=== PATIENT | female | born 1990 | race Asian ===

== ENCOUNTER → 2024-06-04 | Outpatient (CLI) | payer MEDICAID ==
[2024-06-04 11:58] LABS: Basophils # (auto) 0.1 10 ^3/uL (0-0.2); Basophils % (auto) 0.8 % (0.0-2.0); Eosinophils # (auto) 0 10 ^3/uL (0-0.8); Eosinophils % (auto) 0.4 % (0.0-7.0); Hemoglobin 13.6 g/dL (12.2-16.2); Lymphocytes # (auto) 1.6 10 ^3/uL (0.4-5.4); Lymphocytes % (auto) 17.6 % (10.0-50.0); Mean Corpuscular Hemoglobin 30.5 pg (28.0-32.0); Mean Corpuscular Volume 89.7 fL (80.0-100.0); Monocytes # (auto) 0.5 10 ^3/uL (0-1.3); Monocytes % (auto) 5.2 % (0.0-12.0); Neutrophils # (auto) 6.8 10 ^3/uL (1.6-8.6); Nucleated Red Blood Cells % 0.1 %; Red Blood Cells 4.47 10^6/uL (4.0-5.20); Red Cell Distribution Width 13.3 % (11.8-14.3)
[2024-06-04 12:49] LABS: Amphetamine Screen, Urine Neg (NEGATIVE)
[2024-06-04 12:53] LABS: Barbiturate Scree,Urine Neg (NEGATIVE); Benzodiazephine Screen, Urine Neg (NEGATIVE); Cannabinoid Screen, Urine Neg (NEGATIVE); Cocaine Screen, Urine Neg (NEGATIVE); Opiate Scree,Urine Neg (NEGATIVE); Phencyclidine Screen, Urine Neg (NEGATIVE); Thyroid Stimulating Hormone 1.49 uIU/mL (0.55-4.78)
[2024-06-04 12:55] LABS: Alanine Aminotransferase 36 U/L (7-40); Albumin 4.5 g/dL (3.2-4.8); Alkaline Phosphatase 38 U/L (46-116); Anion Gap 7 (5-15); Aspartate Aminotransferase 17 U/L (13-40); BUN/Creatinine Ratio 9.4 (10.0-20.0); Blood Urea Nitrogen 5 mg/dL (9-23); Calcium 9.9 mg/dL (8.7-10.4); Carbon Dioxide 24 mmol/L (20-30); Chloride 106 mmol/L (98-107); Cholesterol 162 mg/dL (< 200); Glucose 77 mg/dL (74-106); HDL Cholesterol 50 mg/dL (40-59); LDL Cholesterol 100 mg/dL (< 100); Potassium 3.9 mmol/L (3.5-5.1); Sodium 137 mmol/L (136-145); Total Protein 7.1 g/dL (5.7-8.2); Triglycerides 48 mg/dL (< 150)
[2024-06-04 13:01] LABS: Beta HCG, Quantitative 122485.5 mIU/mL (1.5-4.2)
== END | disposition home or self-care (01) ==
LOC: LAB 10:59
PROVIDERS: ATTEND Obstetrics & Gynecology
DX: Z34.00 Encounter for supervision of normal first pregnancy, unspecified trimester (principal); Z31.430 Encounter of female for testing for genetic disease carrier status for procreative management; N39.0 Urinary tract infection, site not specified; Z3A.00 Weeks of gestation of pregnancy not specified
CPT/HCPCS: 36415; 80053; 80061; 80307; 83036; 84439; 84443; 84702; 85025; 86592; 86703; 86762; 86850; 86900; 86901; 87086; 87340

== ENCOUNTER → 2024-09-02 | Outpatient (CLI) | payer MEDICAID ==
[2024-09-02 15:34] LABS: Chloride 105 mmol/L (98-107); Potassium 3.8 mmol/L (3.5-5.1)
[2024-09-02 15:35] LABS: Carbon Dioxide 26 mmol/L (20-31)
[2024-09-02 15:36] LABS: Calcium 9.9 mg/dL (8.7-10.4)
[2024-09-02 15:40] LABS: BUN/Creatinine Ratio 17.4 (10.0-20.0); Blood Urea Nitrogen 8 mg/dL (9-23); Glucose 76 mg/dL (74-106)
[2024-09-02 15:43] LABS: Anion Gap 5 (5-15); Sodium 136 mmol/L (136-145)
[2024-09-02 16:10] LABS: Basophils # (auto) 0 10 ^3/uL (0-0.2); Basophils % (auto) 0.4 % (0.0-2.0); Eosinophils # (auto) 0.1 10 ^3/uL (0-0.8); Eosinophils % (auto) 1.1 % (0.0-7.0); Hematocrit 36.3 % (36.0-46.0); Hemoglobin 12.2 g/dL (12.2-16.2); Lymphocytes # (auto) 1.6 10 ^3/uL (0.4-5.4); Lymphocytes % (auto) 15.7 % (10.0-50.0); Mean Corpuscular Hemoglobin 31.4 pg (28.0-32.0); Mean Corpuscular Hgb Conc. 33.7 g/dL (32.0-36.0); Monocytes # (auto) 0.5 10 ^3/uL (0-1.3); Monocytes % (auto) 4.8 % (0.0-12.0); Neutrophils # (auto) 7.9 10 ^3/uL (1.6-8.6); Platelet Count (auto) 224 10^3/uL (140-450); Red Cell Distribution Width 14.1 % (11.8-14.3); White Blood Cell 10.1 10^3/uL (4.4-10.8)
== END | disposition home or self-care (01) ==
LOC: LAB 14:52
PROVIDERS: ATTEND Obstetrics & Gynecology
DX: Z34.00 Encounter for supervision of normal first pregnancy, unspecified trimester (principal)
CPT/HCPCS: 36415; 80048; 85025

== ENCOUNTER → 2024-10-15 | Outpatient (CLI) | payer MEDICAID ==
[2024-10-15 09:29] LABS: Basophils # (auto) 0.1 10 ^3/uL (0-0.2); Basophils % (auto) 0.7 % (0.0-2.0); Eosinophils # (auto) 0.1 10 ^3/uL (0-0.8); Eosinophils % (auto) 0.5 % (0.0-7.0); Hematocrit 36.5 % (36.0-46.0); Hemoglobin 12.2 g/dL (12.2-16.2); Lymphocytes # (auto) 1.2 10 ^3/uL (0.4-5.4); Lymphocytes % (auto) 10.9 % (10.0-50.0); Mean Corpuscular Hemoglobin 31.4 pg (28.0-32.0); Mean Corpuscular Hgb Conc. 33.4 g/dL (32.0-36.0); Monocytes # (auto) 0.5 10 ^3/uL (0-1.3); Monocytes % (auto) 4.6 % (0.0-12.0); Neutrophils # (auto) 9.5 10 ^3/uL (1.6-8.6); Neutrophils % (auto) 83.3 % (37.0-80.0); Platelet Count (auto) 225 10^3/uL (140-450); Red Blood Cells 3.88 10^6/uL (4.0-5.20); Red Cell Distribution Width 13.7 % (11.8-14.3); White Blood Cell 11.4 10^3/uL (4.4-10.8)
[2024-10-15 10:21] LABS: Alanine Aminotransferase 15 U/L (7-40); Albumin 4.1 g/dL (3.2-4.8); Alkaline Phosphatase 60 U/L (46-116); Anion Gap 8 (5-15); Aspartate Aminotransferase 15 U/L (13-40); BUN/Creatinine Ratio 18.5 (10.0-20.0); Bilirubin, Total 0.5 mg/dL (0.2-1.0); Blood Urea Nitrogen 10 mg/dL (9-23); Calcium 9.7 mg/dL (8.7-10.4); Carbon Dioxide 24 mmol/L (20-31); Chloride 106 mmol/L (98-107); Glucose 87 mg/dL (74-106); Potassium 3.8 mmol/L (3.5-5.1); Sodium 138 mmol/L (136-145); Total Protein 6.9 g/dL (5.7-8.2)
[2024-10-16 07:06] LABS: RPR Non Reactive (Non Reactive)
[2024-10-16 23:06] LABS: Chlamydia Trachomatis, NAA Negative (Negative); Neisseria gonorrhoeae, NAA Negative (Negative)
== END | disposition home or self-care (01) ==
LOC: LAB 08:53
DX: Z34.00 Encounter for supervision of normal first pregnancy, unspecified trimester (principal); Z3A.00 Weeks of gestation of pregnancy not specified
CPT/HCPCS: 36415; 80053; 82951; 83036; 85025; 86592; 86850; 86900; 86901

== ENCOUNTER → 2024-12-25 | Outpatient (CLI) | payer MEDICAID ==
[2024-12-25 12:10] LABS: Basophils # (auto) 0 10 ^3/uL (0-0.2); Basophils % (auto) 0.6 % (0.0-2.0); Eosinophils # (auto) 0 10 ^3/uL (0-0.8); Eosinophils % (auto) 0.5 % (0.0-7.0); Hematocrit 39.1 % (36.0-46.0); Hemoglobin 13.6 g/dL (12.2-16.2); Lymphocytes # (auto) 1.1 10 ^3/uL (0.4-5.4); Lymphocytes % (auto) 14.5 % (10.0-50.0); Mean Corpuscular Hemoglobin 32.4 pg (28.0-32.0); Mean Corpuscular Hgb Conc. 34.8 g/dL (32.0-36.0); Mean Corpuscular Volume 93.2 fL (80.0-100.0); Monocytes # (auto) 0.4 10 ^3/uL (0-1.3); Monocytes % (auto) 5.6 % (0.0-12.0); Neutrophils # (auto) 5.8 10 ^3/uL (1.6-8.6); Neutrophils % (auto) 78.8 % (37.0-80.0); Platelet Count (auto) 190 10^3/uL (140-450); Red Cell Distribution Width 13.6 % (11.8-14.3); White Blood Cell 7.4 10^3/uL (4.4-10.8)
[2024-12-26 08:07] LABS: RPR Non Reactive (Non Reactive)
[2024-12-26 22:06] LABS: Chlamydia Trachomatis, NAA Negative (Negative); Neisseria gonorrhoeae, NAA Negative (Negative)
== END | disposition home or self-care (01) ==
LOC: LAB 11:13
PROVIDERS: ATTEND Obstetrics & Gynecology
DX: Z34.00 Encounter for supervision of normal first pregnancy, unspecified trimester (principal); Z72.51 High risk heterosexual behavior; Z3A.00 Weeks of gestation of pregnancy not specified
CPT/HCPCS: 36415; 85025; 86592

== ENCOUNTER 2025-01-02 04:11 | Inpatient (IN) | payer MEDICAID ==
[~2025-01-02] VITALS: Ht 154.9 cm; Wt 51.7 kg
[2025-01-02] MEDS ORDERED: NALBUPHINE HCL 10 MG/1ml INJECTION IV PRN (04:45)
[2025-01-02] MEDS ORDERED: LIDOCAINE 2%HCL (LOCAL ANESTH.) INJ 20ML MDV IJ PRN (04:45)
--- NOTE | 2025-01-02 05:17 | DVHHP ---
CHIEF COMPLAINT: Rupture of membrane. HISTORY OF PRESENT ILLNESS: The patient is a 34-year-old 1, para 0 with EDC 01/15, estimated gestational age of 38 weeks, admitted for spontaneous rupture of membrane, clear fluid with positive pooling. The patient was noted to be 1 cm. PAST MEDICAL HISTORY: None. PAST SURGICAL HISTORY: None. SOCIAL HISTORY: None. FAMILY HISTORY: None. OBSTETRIC AND GYNECOLOGIC HISTORY: Primigravid. Blood type A positive, GBS negative, rubella immune. REVIEW OF SYSTEMS: Consistent with HPI. PHYSICAL EXAMINATION: VITAL SIGNS: Stable, afebrile. HEENT: Within normal limits. CARDIOVASCULAR: Regular rate and rhythm. LUNGS: Clear to auscultation. BREASTS: Symmetrical. No masses. ABDOMEN: Gravid. Positive heart. PELVIC: 1 cm, 50%, -3. EXTREMITIES: No clubbing, cyanosis or edema. IMPRESSION: Intrauterine at 38+ weeks with spontaneous rupture of membrane. PLAN: Expectant vaginal delivery. Informed consent obtained. Risks, complication of augmentation discussed with the patient. The patient fully understands. Dr. Painting will manage her in the morning. He will be the non profit financial controller physician. DO VICENTE Lopez TID: [id number] RECEIPT: [id number]
[2025-01-02 05:28] LABS: Basophils # (auto) 0 10 ^3/uL (0-0.2); Basophils % (auto) 0.5 % (0.0-2.0); Eosinophils # (auto) 0.1 10 ^3/uL (0-0.8); Eosinophils % (auto) 0.6 % (0.0-7.0); Hematocrit 38.5 % (36.0-46.0); Hemoglobin 13.4 g/dL (12.2-16.2); Lymphocytes # (auto) 1.5 10 ^3/uL (0.4-5.4); Lymphocytes % (auto) 17.9 % (10.0-50.0); Mean Corpuscular Hgb Conc. 34.7 g/dL (32.0-36.0); Mean Corpuscular Volume 92.3 fL (80.0-100.0); Monocytes # (auto) 0.5 10 ^3/uL (0-1.3); Monocytes % (auto) 5.6 % (0.0-12.0); Neutrophils # (auto) 6.1 10 ^3/uL (1.6-8.6); Neutrophils % (auto) 75.4 % (37.0-80.0); Platelet Count (auto) 198 10^3/uL (140-450); Red Blood Cells 4.17 10^6/uL (4.0-5.20); Red Cell Distribution Width 13.4 % (11.8-14.3); White Blood Cell 8.1 10^3/uL (4.4-10.8)
[2025-01-02 05:30] LABS: Urine Bacteria FEW /hpf (None Seen); Urine Blood 3+ /uL (Negative); Urine Clarity Turbid (Clear); Urine Color Colorless (Yellow); Urine Protein, UAD 1+ (Negative); Urine Specific Gravity 1.006 (1.001-1.035); Urine Squamous Epithelial Cell FEW /hpf (<5); Urine Urobilinogen Normal (Negative); Urine WBC 39 /HPF (0-5); Urine pH 6.5 (5.0-9.0)
[2025-01-02 05:41] LABS: INR 0.88 (0.9-1.15); Partial Thromboplastin Time 25.1 SEC (24.5-34.5); Prothrombin Time 9.4 sec (9.3-11.8)
[2025-01-02 05:45] LABS: Amphetamine Screen, Urine Neg (NEGATIVE); Barbiturate Scree,Urine Neg (NEGATIVE); Benzodiazephine Screen, Urine Neg (NEGATIVE); Cannabinoid Screen, Urine Neg (NEGATIVE); Cocaine Screen, Urine Neg (NEGATIVE); Opiate Scree,Urine Neg (NEGATIVE); Phencyclidine Screen, Urine Neg (NEGATIVE)
[2025-01-02] MEDS: LACTATED RINGER'S 1,000 ML IV SCH (05:45)
[2025-01-02] MEDS: miSOPROStol 50 MCG per PRE-CUT 1/2 TAB PO PRN (05:45)
[2025-01-02 05:46] LABS: Albumin 4.2 g/dL (3.2-4.8); Anion Gap 11 (5-15); Aspartate Aminotransferase 16 U/L (13-40); BUN/Creatinine Ratio 13.8 (10.0-20.0); Bilirubin, Total 0.7 mg/dL (0.2-1.0); Calcium 10.2 mg/dL (8.7-10.4); Carbon Dioxide 20 mmol/L (20-31); Glucose 86 mg/dL (74-106); Sodium 139 mmol/L (136-145); Total Protein 7.1 g/dL (5.7-8.2)
[2025-01-02 05:56] LABS: Alanine Aminotransferase < 9 U/L (7-40); Alkaline Phosphatase 147 U/L (46-116); Blood Urea Nitrogen 9 mg/dL (9-23); Chloride 108 mmol/L (98-107); Potassium 3.5 mmol/L (3.5-5.1)
[2025-01-02] MEDS: LIDOCAINE HCL 2 %PF INJ 10ML AMP IJ ONE (11:36)
[2025-01-02] MEDS: ePHEDrine SULFATE 50 MG/ML AMP ONE (11:37)
[2025-01-02] MEDS: ROPIVACAINE HCL 200 ML ONE (12:28)
[2025-01-02] MEDS: LACT. RINGERS/OXYTOCIN 20UNITS 1,000 ML IV ONE (16:53)
[2025-01-02] MEDS ORDERED: TERBUTALINE SULFATE 1 MG/ML 1ML VIAL SC PRN (18:30)
[2025-01-02] MEDS: LACT. RINGERS/OXYTOCIN 20UNITS 1,000 ML IV SCH (18:38)
[2025-01-02] MEDS: PHISODERM TOP SOLN 240ML BTL TOP PRN (18:40)
[2025-01-02] MEDS: WITCH HAZEL-GLYCERIN PAD TOP PRN (18:40)
[2025-01-02] MEDS: DERMOPLAST 60ML BOTTLE TOP PRN (18:40)
[2025-01-02] MEDS ORDERED: METHYLERGONOVINE MALEATE 0.2 MG/ML AMP IM PRN (18:45)
[2025-01-02] MEDS ORDERED: CARBOPROST TROMETHAMINE 250 MCG/1ML VIAL IM PRN (18:45)
[2025-01-02] MEDS ORDERED: ONDANSETRON ODT 4 MG TAB PO PRN (20:45)
[2025-01-02] MEDS ORDERED: IBUPROFEN 600 MG TAB PO PRN ×2 (20:45→21:00)
--- NOTE | 2025-01-02 21:31 | LDN2 ---
Labor and Delivery Note Date 01/02/25 Age 34 1 Para 0 AB 0 EDC term EGA term Diagnosis labor Vaginal Delivery: VTX Vacuum Assisted: Yes (Vacuum placed 2nd to maternal exaustion, oblique, 2+ station for 2 hrs ; Trial of gentle Vacuum placed at 2+ station oblique position, gently in coordination with 4 contractions the vertex rotated with finger tip pressure and essentially delivered spontaneously.) Sex: Male Weight 6 lbs, 1 oz Apgars 8/9 Nuchal Cord Transected: Yes (loose x1) Amniotic Fluid: Clear Anesthesia Epidural MASSAGE THERAPY INSTRUCTOR [place]ugwen Episiotomy: No Extension: Yes (2nd midline posterior) Repaired with 2-0 chromic EBL 400cc mild post hemorrhage responded to Pit and massage Labs Laboratory Tests 06/04/24 11:31: Hepatitis B Surface Antigen Negative, HIV (1&2) Antibody Negative, Rubella Antibody Positive Blood Bank 01/02/25 04:52: Blood Type A POSITIVE Complications none Conditions stable guarded Consulting Project Director none present MAGY RIVERA DO Jan 02, 2025 21:31
[2025-01-02] MEDS ORDERED: DIPHENOXYLATE W/ATROPINE 2.5 MG TAB PO SCH (22:00)
[2025-01-02] MEDS: DOCUSATE SOD 100 MG CAP PO SCH (22:00)
[2025-01-02] MEDS: ACETAMINOPHEN 325 MG TAB PO PRN (22:09)
[2025-01-02 22:30] VITALS: BP 98/57; PULSE 68; RESP 16; TEMP 98.7; O2SAT 98
[2025-01-02] MEDS: LACT. RINGERS/OXYTOCIN 20UNITS 500 ML IV ONE ×2 (22:40→22:41)
[2025-01-03] VITALS (8 sets, daily range): BP systolic 84–103; BP diastolic 42–64; PULSE 87–91; RESP 14–18; TEMP 97.7–98.9; O2SAT 96–99
[2025-01-03 05:40] LABS: Basophils # (auto) 0.1 10 ^3/uL (0-0.2); Basophils % (auto) 0.3 % (0.0-2.0); Eosinophils # (auto) 0 10 ^3/uL (0-0.8); Eosinophils % (auto) 0.1 % (0.0-7.0); Hematocrit 23.3 % (36.0-46.0); Hemoglobin 7.8 g/dL (12.2-16.2); Lymphocytes % (auto) 5.1 % (10.0-50.0); Mean Corpuscular Hemoglobin 31.7 pg (28.0-32.0); Mean Corpuscular Hgb Conc. 33.7 g/dL (32.0-36.0); Mean Corpuscular Volume 94.2 fL (80.0-100.0); Monocytes # (auto) 0.8 10 ^3/uL (0-1.3); Monocytes % (auto) 4.2 % (0.0-12.0); Neutrophils # (auto) 17.6 10 ^3/uL (1.6-8.6); Neutrophils % (auto) 90.3 % (37.0-80.0); Platelet Count (auto) 149 10^3/uL (140-450); Red Blood Cells 2.47 10^6/uL (4.0-5.20); Red Cell Distribution Width 13.5 % (11.8-14.3); White Blood Cell 19.5 10^3/uL (4.4-10.8)
[2025-01-03] MEDS: LACTATED RINGER'S 1,000 ML IV ONE (05:46)
[2025-01-03 09:52] LABS: Basophils # (auto) 0 10 ^3/uL (0-0.2); Eosinophils # (auto) 0 10 ^3/uL (0-0.8); Eosinophils % (auto) 0.1 % (0.0-7.0); Hemoglobin 7.4 g/dL (12.2-16.2); Monocytes # (auto) 0.5 10 ^3/uL (0-1.3); Monocytes % (auto) 2.8 % (0.0-12.0)
[2025-01-03 09:56] LABS: Basophils % (auto) 0.1 % (0.0-2.0); Hematocrit 21.7 % (36.0-46.0); Lymphocytes # (auto) 1.3 10 ^3/uL (0.4-5.4); Lymphocytes % (auto) 7.9 % (10.0-50.0); Mean Corpuscular Hemoglobin 31.7 pg (28.0-32.0); Mean Corpuscular Hgb Conc. 33.9 g/dL (32.0-36.0); Mean Corpuscular Volume 93.4 fL (80.0-100.0); Neutrophils % (auto) 89.1 % (37.0-80.0); Platelet Count (auto) 151 10^3/uL (140-450); Red Blood Cells 2.33 10^6/uL (4.0-5.20); Red Cell Distribution Width 13.4 % (11.8-14.3); White Blood Cell 16.8 10^3/uL (4.4-10.8)
--- NOTE | 2025-01-03 10:12 | DVHPN2 ---
Chief Complaints Patient reports: No new complaints, Feels better, Other (Patient ambulating having minimal lochia she did have findings of severe anemia is receiving 2 units packed RBCs hemoglobin 7) Nursing reports: No new complaints, No abdominal pain, No chest pain, No dizziness, No cough Objective Vitals Vital Signs Date Time Temp Pulse Resp B/P (MAP) Pulse Ox O2 Delivery O2 Flow Rate FiO2 01/03/25 07:00 Room Air 0.0 01/03/25 07:00 97.7 87 96/59 (71) 98 97.7 01/03/25 03:30 18 Medications Current Medications Medications (Trade) Dose Ordered Sig/Lisa Route PRN Reason Start Time Stop Time Status Last Admin Acetaminophen (Tylenol Tablet) 650 mg Q4HP PRN PO MILD PAIN (1-3 PAIN SCALE) 01/02/25 20:45 01/03/25 04:05 Diphenoxylate HCl/ Atropine (Lomotil Tablet) 10 mg Q12HR PO 01/02/25 22:00 Docusate Sodium (Colace Capsule) 200 mg HS PO 01/02/25 22:00 Methylergonovine Maleate (Methergine) 0.2 mg Q8HP PRN IM POST HEMORRHAGE 01/02/25 18:45 01/04/25 18:44 Ondansetron HCl (Zofran Po) 4 mg Q4HPRN PRN PO NAUSEA / VOMITING 01/02/25 20:45 Oxytocin 1,000 ml @ 6 ml/hr Q24H IV 01/02/25 18:30 01/02/25 18:38 Terbutaline Sulfate (Brethine Inj) 0.25 mg ONCE PRN SC Uterine tachysystole 01/02/25 18:30 General: Normal ENT: Normal Neck: Normal Lungs: Normal Cardiovascular: Normal Abdominal: Normal (Uterus firm 12 week size minimal) Musculoskeletal: Normal Extremities: Normal Skin: Normal Neurological: Normal Studies Laboratory Tests 01/03/25 09:33 01/02/25 04:52 Test 01/02/25 04:52 Range/Units Serum Glucose 86 74-106 mg/dL Ass/Plan Assessment Patient speaks Japanese has been translating she is doing well pain control she understands the risks benefits complications alternatives to blood transfusion not limited hepatitis HIV transfusion reaction patient and has been adamantly went to proceed with transfusion. Plan Continue blood transfusion. Close observation condition stable guarded RIVERA,MAGY R DO Jan 03, 2025 10:12
[2025-01-03 12:06] LABS: RPR Non Reactive (Non Reactive)
[2025-01-04 03:00] VITALS: BP 90/51; PULSE 81; RESP 15; TEMP 97.7; O2SAT 96
--- NOTE | 2025-01-04 07:08 | DVHDS2 ---
New Physician D'charge PN Admitting Diagnosis Admitting Diagnosis Labor Discharge Diagnosis Patient held secondary to baby not ready for discharge. Operations or Procedures second-degree repair of vaginal posterior Reason(s) For Hospitalization Hospital Course Treatment Plan Discharge in a.m. 01/05/2025 Complications None Condition of Discharge Good Disposition Home Discharge Instructions Diet: Regular Activity: Light activity Activity comment: pelvic rest 8 weeks Medications: none Follow Up Care Follow Up/Referral: 2 weeks or prn Discharge Statement: "Patient was advised to return to the ER or call 911 if any headaches, dizziness, shortness of breath, chest pain, abdominal pain, bleeding, fevers, or worsening of medical condition. Patient was counseled about treatment plan, medications, possible side effects, patientverbalized understanding. All questions were answered to the best of my ability. This discharge took greater then 30 minutes in planning, reviewing documentation , counseling the patient, and discussing with other team members." MAGY RIVERA DO Jan 04, 2025 07:08
--- NOTE | 2025-01-04 07:08 | DVHPN2 ---
Chief Complaints Patient reports: No new complaints, Feels better, Other (Patient ambulating having minimal lochia she did have findings of severe anemia is receiving 2 units packed RBCs hemoglobin 7) Nursing reports: No new complaints, No abdominal pain, No chest pain, No dizziness, No cough Objective Vitals Vital Signs Date Time Temp Pulse Resp B/P (MAP) Pulse Ox O2 Delivery O2 Flow Rate FiO2 01/04/25 03:00 97.7 81 15 90/51 (64) 96 97.7 01/03/25 19:00 Room Air 01/03/25 07:00 0.0 General: Normal ENT: Normal Neck: Normal Lungs: Normal Cardiovascular: Normal Abdominal: Normal (Uterus firm 12 week size minimal) Musculoskeletal: Normal Extremities: Normal Skin: Normal Neurological: Normal Studies Laboratory Tests 01/03/25 09:33 01/02/25 04:52 Test 01/02/25 04:52 Range/Units Serum Glucose 86 74-106 mg/dL Ass/Plan Assessment Patient speaks Indonesian has been translating she is doing well pain control she understands the risks benefits complications alternatives to blood transfusion not limited hepatitis HIV transfusion reaction patient and has been adamantly went to proceed with transfusion. MAGY RIVERA DO Jan 04, 2025 07:08
[2025-01-04 11:00] VITALS: BP 87/49; PULSE 83; RESP 16; TEMP 98.4; O2SAT 97
[2025-01-04 12:23] VITALS: BP 104/57
[2025-01-04 15:00] VITALS: BP 98/60; PULSE 87; RESP 16; TEMP 98.5; O2SAT 98
[2025-01-04 19:00] VITALS: BP 130/68; PULSE 96; RESP 16; TEMP 98; O2SAT 96
[2025-01-04 23:16] VITALS: BP 106/71; PULSE 91; RESP 16; TEMP 97.8; O2SAT 97
[2025-01-05 03:00] VITALS: BP 101/55; PULSE 78; RESP 16; TEMP 97.9; O2SAT 97
--- NOTE | 2025-01-05 05:35 | DVHPN2 ---
Chief Complaints Patient reports: No new complaints, Feels better, Other (Patient ambulating having minimal lochia she did have findings of severe anemia is receiving 2 units packed RBCs hemoglobin 7) Nursing reports: No new complaints, No abdominal pain, No chest pain, No dizziness, No cough Objective Vitals Vital Signs Date Time Temp Pulse Resp B/P (MAP) Pulse Ox O2 Delivery O2 Flow Rate FiO2 01/05/25 03:00 97.9 78 16 101/55 (70) 97 97.9 01/04/25 19:00 Room Air 01/04/25 07:00 0.0 General: Normal ENT: Normal Neck: Normal Lungs: Normal Cardiovascular: Normal Abdominal: Normal (Uterus firm 12 week size minimal) Musculoskeletal: Normal Extremities: Normal Skin: Normal Neurological: Normal Studies Laboratory Tests 01/03/25 09:33 01/02/25 04:52 Test 01/02/25 04:52 Range/Units Serum Glucose 86 74-106 mg/dL Ass/Plan Assessment Patient speaks Upper Sorbian has been translating she is doing well pain control she understands the risks benefits complications alternatives to blood transfusion not limited hepatitis HIV transfusion reaction patient and has been adamantly went to proceed with transfusion. Plan Patient decided no blood transfusion MAGY RIVERA DO Jan 05, 2025 05:34
[2025-01-05 06:45] VITALS: BP 98/64; PULSE 73; RESP 16; TEMP 97.4; O2SAT 96
[2025-01-05] MEDS: LIDOCAINE 2%HCL (LOCAL ANESTH.) INJ 20ML MDV ONE (08:44)
[2025-01-05] MEDS: ePHEDrine SULFATE 50 MG/ML AMP IV ONE (08:45)
[2025-01-05] MEDS: NALOXONE HCL 0.4 MG/ML VIAL IV ONE (08:45)
[2025-01-05 10:07] LABS: Treponema Pallidum Ab LC Non Reactive (Non Reactive)
[2025-01-05 11:30] VITALS: BP 101/61; PULSE 85; RESP 16; TEMP 97.2; O2SAT 100
[2025-01-05 15:15] VITALS: BP 95/60; PULSE 75; RESP 16; TEMP 97.9; O2SAT 97
== END 2025-01-05 17:10 | disposition home or self-care (01) | DRG 560 ==
LOC: OBSVTOIN 04:11 → LDRP 04:11
PROVIDERS: ADMIT Obstetrics & Gynecology; ATTEND Obstetrics & Gynecology
PROC: 10D07Z6 Extraction of Products of Conception, Vacuum, Via Natural or Artificial Opening (ICD-10-PCS; principal; 2025-01-02)
PROC: 3E0R3BZ Introduction of Anesthetic Agent into Spinal Canal, Percutaneous Approach (ICD-10-PCS; 2025-01-02)
PROC: 00HU33Z Insertion of Infusion Device into Spinal Canal, Percutaneous Approach (ICD-10-PCS; 2025-01-02)
PROC: 0KQM0ZZ Repair Perineum Muscle, Open Approach (ICD-10-PCS; 2025-01-02)
DX: O69.81X0 Labor and delivery complicated by cord around neck, without compression, not applicable or unspecified (principal); Z37.0 Single live birth; O72.1 Other immediate postpartum hemorrhage; Z3A.38 38 weeks gestation of pregnancy; O70.1 Second degree perineal laceration during delivery; R71.0 Precipitous drop in hematocrit
CPT/HCPCS: 36415; 59025; 59409; 62282; 80053; 80307; 81001; 81002; 84112; 85025; 85610; 85730; 86592; 86780; 86850; 86900; 86901; 86920; 94760; 94762; 96360; 96361; 96366; G0378; J2590